=== PATIENT | female | born 1980 | race Caucasian/White ===

== ENCOUNTER 2022-08-26 12:13 | Emergency (ER) | payer OTHER ==
[~2022-08-26] VITALS: Ht 154.9 cm; Wt 61.2 kg
[2022-08-26 12:46] VITALS: BP 127/77
--- NOTE | 2022-08-26 15:15 | NUR ---
POST OP SHOE TO L FOOT.
--- NOTE | 2022-08-26 17:02 | NUR ---
Patient discharged with v/s stable. Written and verbal after care instructions given and explained. Patient verbalized understanding. Ambulatory with steady gait. All questions addressed prior to discharge. Advised to follow up with PMD.
== END 2022-08-26 17:02 | disposition home or self-care (01) ==
LOC: MED 12:13
DX: M79.675 Pain in left toe(s) (principal)
CPT/HCPCS: 29515; 73630; 99283